=== PATIENT | male | born 1955 | race Caucasian/White ===

== ENCOUNTER 2020-09-21 17:39 | Inpatient (IN) | payer OTHER ==
[~2020-09-21] VITALS: Ht 188 cm; Wt 88.1 kg
[2020-09-21] MEDS ORDERED: IODIXANOL 320MG/ML 100ML BTL IV ONE (17:57)
[2020-09-21] MEDS ORDERED: LIDOCAINE 2%HCL (LOCAL ANESTH.) INJ 20ML MDV ONE (17:57)
[2020-09-21] MEDS ORDERED: HEPARIN SODIUM (PORCINE) 5000 UNITS/ML 1ML VIAL IV ONE ×2 (18:00)
[2020-09-21] MEDS ORDERED: MIDAZOLAM HCL 2MG/2ML 2ml VIAL (1mg/ml) ONE (18:11)
[2020-09-21] MEDS ORDERED: fentaNYL CITRATE 100 MCG/2 ML VL ONE (18:11)
[2020-09-21] MEDS ORDERED: ANGIOMAX 250 MG VIAL IV ONE (18:11)
[2020-09-21] MEDS ORDERED: SODIUM CHL 0.9% 50 ML ONE (18:11)
[2020-09-21 18:26] LABS: Basophils # (auto) 0.1 10 ^3/uL (0-0.2); Basophils % (auto) 0.8 % (0.0-2.0); Eosinophils # (auto) 0.1 10 ^3/uL (0-0.8); Eosinophils % (auto) 1.2 % (0.0-7.0); Hematocrit 45.2 % (41.0-53.0); Hemoglobin 15.9 g/dL (13.5-17.5); Lymphocytes # (auto) 1.5 10 ^3/uL (0.4-5.4); Lymphocytes % (auto) 16.4 % (10.0-50.0); Mean Corpuscular Hemoglobin 31.2 pg (28.0-32.0); Mean Corpuscular Hgb Conc. 35.2 g/dL (32.0-36.0); Mean Corpuscular Volume 88.8 fL (80.0-100.0); Monocytes # (auto) 0.7 10 ^3/uL (0-1.3); Monocytes % (auto) 7.4 % (0.0-12.0); Neutrophils % (auto) 74.2 % (37.0-80.0); Nucleated Red Blood Cells % 0.1 %; Red Cell Distribution Width 14.4 % (11.8-14.3); White Blood Cell 9.4 10^3/uL (4.4-10.8)
[2020-09-21 18:41] LABS: Albumin 3.5 g/dL (3.4-5.0); Calcium 8.7 mg/dL (8.5-10.1); Magnesium 2.7 mg/dL (1.6-2.6)
[2020-09-21 18:45] LABS: Bilirubin, Total 0.3 mg/dL (0.2-1.0); Total Protein 7.3 g/dL (6.4-8.2)
[2020-09-21] MEDS ORDERED: EPTIFIBATIDE INJ (2MG/ML) 10ML VIAL IV ONE (18:45)
[2020-09-21] MEDS ORDERED: niCARdipine 25 MG/10 ML VIAL IV ONE (18:48)
[2020-09-21] MEDS ORDERED: TICAGRELOR 90 MG TAB ONE (19:10)
[2020-09-21] MEDS ORDERED: ACETAMINOPHEN 500 MG TAB PO PRN (19:30)
[2020-09-21] MEDS ORDERED: NITROGLYCERIN 0.4 MG SL TAB SL PRN (19:30)
[2020-09-21] MEDS ORDERED: MORPHINE SULFATE INJECTION 2 MG/ML SYRG IV PRN ×2 (19:30)
[2020-09-21] MEDS ORDERED: HYDROcodone-ACET 5/325MG TAB PO PRN (19:30)
[2020-09-21] MEDS ORDERED: ONDANSETRON HCL 4 MG/2 ML VIAL IV PRN (19:30)
[2020-09-21] MEDS ORDERED: hydrALAZINE HCL 20 MG/ML VL IV PRN (19:30)
[2020-09-21] MEDS ORDERED: FUROSEMIDE 20 MG/2 ML VIAL IV ONE (21:00)
[2020-09-21 22:00] VITALS: BP 130/78
[2020-09-21] MEDS: SODIUM CHLOR 0.9% PF (SALINE LOCK) 10ML VIAL/SYR IV SCH (22:21)
[2020-09-21] MEDS: DOCUSATE SOD 100 MG CAP PO SCH (22:22)
[2020-09-21] MEDS: METOPROLOL TARTRATE 25 MG TAB PO SCH (22:23)
[2020-09-22 05:00] VITALS: BP 130/79
[2020-09-22] MEDS: SODIUM CHLOR 0.9% PF (SALINE LOCK) 10ML VIAL/SYR IV SCH ×3 (05:14→21:56)
[2020-09-22 08:41] VITALS: BP 112/73
[2020-09-22 09:57] LABS: Basophils # (auto) 0 10 ^3/uL (0-0.2); Basophils % (auto) 0.5 % (0.0-2.0); Eosinophils # (auto) 0.1 10 ^3/uL (0-0.8); Eosinophils % (auto) 0.8 % (0.0-7.0); Hematocrit 42.3 % (41.0-53.0); Hemoglobin 14.8 g/dL (13.5-17.5); Lymphocytes # (auto) 1.1 10 ^3/uL (0.4-5.4); Lymphocytes % (auto) 12.1 % (10.0-50.0); Mean Corpuscular Hgb Conc. 34.9 g/dL (32.0-36.0); Mean Corpuscular Volume 88.9 fL (80.0-100.0); Monocytes # (auto) 0.5 10 ^3/uL (0-1.3); Monocytes % (auto) 5.3 % (0.0-12.0); Neutrophils # (auto) 7.4 10 ^3/uL (1.6-8.6); Neutrophils % (auto) 81.3 % (37.0-80.0); Nucleated Red Blood Cells % 0.1 %; Red Blood Cells 4.76 10^6/uL (4.5-5.90); Red Cell Distribution Width 14.4 % (11.8-14.3)
[2020-09-22] MEDS ORDERED: LISINOPRIL 10 MG TAB PO SCH (10:00)
[2020-09-22 10:17] LABS: Calcium 8.2 mg/dL (8.5-10.1); Potassium 3.1 mmol/L (3.5-5.1)
[2020-09-22 10:18] LABS: INR 1.02 (0.9-1.15); Partial Thromboplastin Time 26.2 sec (23.0-31.2)
[2020-09-22 10:20] LABS: BUN/Creatinine Ratio 15.7
[2020-09-22] MEDS: DOCUSATE SOD 100 MG CAP PO SCH ×2 (10:22→21:57)
[2020-09-22] MEDS: ASPirin-EC 81 mg tab PO SCH (10:22)
[2020-09-22] MEDS: METOPROLOL TARTRATE 25 MG TAB PO SCH ×2 (10:24→21:56)
[2020-09-22] MEDS: FAMOTIDINE 20 MG TAB PO SCH (10:24)
[2020-09-22] MEDS: NICOTINE 14 MG/24HR TOPICAL PATCH TD SCH (10:25)
[2020-09-22] MEDS: TICAGRELOR 90 MG TAB GT SCH ×2 (10:30→21:55)
[2020-09-22 12:52] VITALS: BP 120/77
[2020-09-22 17:00] VITALS: BP 101/73
[2020-09-22] MEDS ORDERED: POTASSIUM CHL 20 Meq TABLET PO ONE (20:00)
[2020-09-22 22:00] VITALS: BP 102/59
[2020-09-23 04:48] VITALS: BP 107/70
[2020-09-23] MEDS: SODIUM CHLOR 0.9% PF (SALINE LOCK) 10ML VIAL/SYR IV SCH (05:05)
[2020-09-23 06:39] LABS: Potassium 3.6 mmol/L (3.5-5.1)
[2020-09-23 06:53] LABS: BUN/Creatinine Ratio 15.3; Calcium 8.3 mg/dL (8.5-10.1)
[2020-09-23 09:00] VITALS: BP 101/64
[2020-09-23] MEDS: FAMOTIDINE 20 MG TAB PO SCH (10:00)
[2020-09-23] MEDS ORDERED: LISINOPRIL 5 MG TAB PO SCH (10:00)
[2020-09-23] MEDS: DOCUSATE SOD 100 MG CAP PO SCH (10:00)
[2020-09-23] MEDS: ASPirin-EC 81 mg tab PO SCH (10:01)
[2020-09-23] MEDS: METOPROLOL TARTRATE 25 MG TAB PO SCH (10:02)
[2020-09-23] MEDS: TICAGRELOR 90 MG TAB GT SCH (10:02)
[2020-09-23] MEDS: NICOTINE 14 MG/24HR TOPICAL PATCH TD SCH (10:04)
[2020-09-23 12:07] VITALS: BP 101/64
== END 2020-09-23 13:30 | disposition home or self-care (01) | DRG 246 ==
LOC: ER 17:39 → EDBD 17:39 → ER 18:21 → CATH 19:06 → CENTRAL 20:56 → TELE-CENTR 22:38 → TELE-EAST 09-22 01:44
PROVIDERS: ADMIT Specialist; ATTEND Internal Medicine
PROC: 027034Z Dilation of Coronary Artery, One Artery with Drug-eluting Intraluminal Device, Percutaneous Approach (ICD-10-PCS; principal; 2020-09-21)
PROC: 02C03ZZ Extirpation of Matter from Coronary Artery, One Artery, Percutaneous Approach (ICD-10-PCS; 2020-09-21)
PROC: 04HY32Z Insertion of Monitoring Device into Lower Artery, Percutaneous Approach (ICD-10-PCS; 2020-09-21)
PROC: 3E073PZ Introduction of Platelet Inhibitor into Coronary Artery, Percutaneous Approach (ICD-10-PCS; 2020-09-21)
PROC: B240ZZ3 Ultrasonography of Single Coronary Artery, Intravascular (ICD-10-PCS; 2020-09-21)
PROC: B211YZZ Fluoroscopy of Multiple Coronary Arteries using Other Contrast (ICD-10-PCS; 2020-09-21)
PROC: 4A023N7 Measurement of Cardiac Sampling and Pressure, Left Heart, Percutaneous Approach (ICD-10-PCS; 2020-09-21)
PROC: B215YZZ Fluoroscopy of Left Heart using Other Contrast (ICD-10-PCS; 2020-09-21)
PROC: B2151ZZ Fluoroscopy of Left Heart using Low Osmolar Contrast (ICD-10-PCS; 2020-09-21)
PROC: B41FYZZ Fluoroscopy of Right Lower Extremity Arteries using Other Contrast (ICD-10-PCS; 2020-09-21)
DX: I21.09 ST elevation (STEMI) myocardial infarction involving other coronary artery of anterior wall (principal); U07.1 COVID-19; I50.41 Acute combined systolic (congestive) and diastolic (congestive) heart failure; F10.20 Alcohol dependence, uncomplicated; E78.1 Pure hyperglyceridemia; E78.5 Hyperlipidemia, unspecified; F17.210 Nicotine dependence, cigarettes, uncomplicated; M06.9 Rheumatoid arthritis, unspecified; Z86.718 Personal history of other venous thrombosis and embolism; Z79.01 Long term (current) use of anticoagulants; Z86.711 Personal history of pulmonary embolism; Z71.6 Tobacco abuse counseling; Z71.41 Alcohol abuse counseling and surveillance of alcoholic; Z79.899 Other long term (current) drug therapy
CPT/HCPCS: 36415; 71045; 75710; 80048; 80053; 80061; 83735; 84484; 85025; 85049; 85610; 85730; 86141; 87426; 92933; 92978; 93306; 93458; 96361; 96374; 99152; 99153; 99291; C1874; C1887; G0378; J2250; Q9967